=== PATIENT | male | born 1965 | race Two or more races ===

== ENCOUNTER 2020-07-26 19:19 | Inpatient (IN) | payer OTHER ==
[2020-07-26] MEDS ORDERED: CEFTRIAXONE 1GM BAG (ER ONLY) 50 ML IV ONE (19:54)
[2020-07-26] MEDS ORDERED: OCTREOTIDE 100 MCG/ML VIAL ONE (19:54)
[2020-07-26] MEDS ORDERED: OCTREOTIDE 50 MCG/ML AMPUL IV ONE (20:00)
[2020-07-26] MEDS ORDERED: OCTREOTIDE 1,250 MCG in IV NS 0.9% 250 ML IV ONE (20:00)
[2020-07-26] MEDS ORDERED: CEFTRIAXONE 1GM BAG (ER ONLY) 1 GM/50 ML PIGGYBACK IV ONE (20:00)
[2020-07-26] MEDS ORDERED: IV NS 0.9% 250 ML IV ONE (20:54)
[2020-07-26] MEDS ORDERED: IOHEXOL-300 100 ML VIAL IV ONE (20:54)
[2020-07-26] MEDS ORDERED: ONDANSETRON HCL/PF 4 MG/2 ML VIAL IVP PRN (21:00)
[2020-07-26] MEDS ORDERED: IV NS 0.9% 1,000 ML IV ONE (21:00)
[2020-07-26] MEDS ORDERED: Potassium Chloride 40 MEQ in IV NS 0.9% 1,000 ML IV PRN (21:00)
[2020-07-26] MEDS: POTASSIUM CL. PREMIX PERIPHER. 50 ML IV SCH ×2 (21:00→22:00)
[2020-07-26] MEDS ORDERED: PANT20TA17 PO (21:03)
[2020-07-26] MEDS ORDERED: PROP80CA51 PO (21:03)
[2020-07-26] MEDS ORDERED: POTASSIUM CHLORIDE 20 MEQ TAB.PRT.SR PO ONE ×2 (21:06→21:30)
[2020-07-26] MEDS ORDERED: IV PREMIX NS +20MEQ KCL 1 L IV ONE (23:25)
[2020-07-26] MEDS: Potassium Chloride 20 MEQ in IV NS 0.9% 1,000 ML IV PRN (23:45)
[2020-07-26] MEDS: PANTOPRAZOLE 40 MG VIAL IV SCH (23:50)
[2020-07-27] MEDS: OLANZAPINE 5 MG TABLET PO PRN ×2 (00:54→19:39)
[2020-07-27] MEDS: PANTOPRAZOLE 40 MG VIAL IV SCH ×2 (09:22→20:02)
[2020-07-27] MEDS: Potassium Chloride 20 MEQ in IV NS 0.9% 1,000 ML IV PRN ×2 (09:24→20:02)
[2020-07-27] MEDS ORDERED: PROP20TA7 PO (10:38)
[2020-07-27] MEDS: Magnesium 1GM/D5W 100ML PREMIX 100 ML IV SCH ×2 (11:30→12:36)
[2020-07-27] MEDS ORDERED: OCTREOTIDE 1,250 MCG in IV NS 0.9% 247.5 ML IV PRN (12:00)
[2020-07-27] MEDS ORDERED: Sodium Phosphate 15 MMOL in IV NS 0.9% 245 ML IV SCH (13:00)
[2020-07-27] MEDS ORDERED: ANESTHESIA TRAY IN PYXIS 1 EA TRAY MC ONE (15:12)
[2020-07-27] MEDS: PROPRANOLOL HCL 10 MG TABLET PO SCH (16:37)
[2020-07-27] MEDS: OCTREOTIDE 500 MCG in IV NS 0.9% 99 ML IV SCH (23:44)
[2020-07-28] MEDS: PANTOPRAZOLE 40 MG VIAL IV SCH ×2 (08:36→21:31)
[2020-07-28] MEDS: PROPRANOLOL HCL 10 MG TABLET PO SCH ×2 (08:37→16:52)
[2020-07-28] MEDS: Potassium Chloride 20 MEQ in IV NS 0.9% 1,000 ML IV PRN ×2 (09:22→23:26)
[2020-07-28] MEDS: OCTREOTIDE 500 MCG in IV NS 0.9% 99 ML IV SCH ×2 (10:16→21:30)
[2020-07-28] MEDS ORDERED: Sodium Phosphate 15 MMOL in IV NS 0.9% 245 ML IV SCH (11:30)
[2020-07-28] MEDS ORDERED: CEFTRIAXONE 1 G in IV D5W 50 ML IV SCH ×4 (12:00)
[2020-07-28] MEDS ORDERED: CEFTRIAXONE 1 G VIAL IV SCH (20:00)
[2020-07-29] MEDS: PROPRANOLOL HCL 10 MG TABLET PO SCH (08:19)
[2020-07-29] MEDS: PANTOPRAZOLE 40 MG VIAL IV SCH (08:20)
[2020-07-29] MEDS: OCTREOTIDE 500 MCG in IV NS 0.9% 99 ML IV SCH (08:38)
== END 2020-07-29 13:05 | disposition home or self-care (01) | DRG 433 ==
DX: K70.30 Alcoholic cirrhosis of liver without ascites (principal); E87.2 Acidosis; D61.818 Other pancytopenia; I85.10 Secondary esophageal varices without bleeding; K76.6 Portal hypertension; E87.6 Hypokalemia; K72.90 Hepatic failure, unspecified without coma; K57.30 Diverticulosis of large intestine without perforation or abscess without bleeding; K76.0 Fatty (change of) liver, not elsewhere classified; K44.9 Diaphragmatic hernia without obstruction or gangrene; K80.20 Calculus of gallbladder without cholecystitis without obstruction; E80.6 Other disorders of bilirubin metabolism; F43.10 Post-traumatic stress disorder, unspecified; F41.9 Anxiety disorder, unspecified; Z79.899 Other long term (current) drug therapy; K31.89 Other diseases of stomach and duodenum; F10.10 Alcohol abuse, uncomplicated; I86.1 Scrotal varices; Y90.9 Presence of alcohol in blood, level not specified